=== PATIENT | female | born 1990 | race Caucasian/White ===

== ENCOUNTER → 2020-01-15 09:18 | Outpatient (CLI) | payer BC, SELFPAY ==
--- NOTE | ~2020-01-15 | US_ITS ---
EXAMINATION: US thyroid DATE: 01/15/2020 09:41 INDICATION: Nontoxic goiter. TECHNIQUE: Multiple ultrasound images of the thyroid were obtained. COMPARISON: 06/30/2016 FINDINGS: The right thyroid lobe measures 6.5 x 2.0 x 2.1 cm. The left thyroid lobe measures 5.9 x 1.6 x 1.6 c m. The thyroid isthmus measures 7 mm in thickness. No discrete nodules identified. There is normal ec hotexture, echogenicity and vascular flow throughout the thyroid gland. IMPRESSION: 1. No significant interval change in an enlarged thyroid without discrete mass. Recommend clinical fo llowup with repeat imaging if there are changes on physical exam. Reviewed, dictated and finalized at location B. IMPRESSION: 1. No significant interval change in an enlarged thyroid without discrete mass. Recommend clinical followup with repeat imaging if there are changes on physic al exam.
== END ==
PROVIDERS: Visit Provider Obstetrics & Gynecology
DX: E04.9 Nontoxic goiter, unspecified (principal)
CPT/HCPCS: 76536

== ENCOUNTER 2020-01-15 09:50 | Outpatient (CLI) | payer BC, SELFPAY ==
[2020-01-15 11:17] LABS: Free T4 Free Thyroxine 0.89 ng/mL (0.78-2.19)
== END 2020-01-15 09:51 | disposition home or self-care (01) ==
LOC: ANHLAB 09:52
PROVIDERS: Visit Provider Obstetrics & Gynecology
DX: E04.9 Nontoxic goiter, unspecified (principal)
CPT/HCPCS: 36415; 84439; 84443

== ENCOUNTER 2020-03-20 14:59 | Outpatient (RCR) | payer BC, SELFPAY ==
[2020-03-23 06:35] LABS: Progesterone 14.2 ng/mL (***)
== END 2020-06-16 23:59 | disposition home or self-care (01) ==
LOC: ANHLAB 14:59
PROVIDERS: Visit Provider Obstetrics & Gynecology
DX: O09.299 Supervision of pregnancy with other poor reproductive or obstetric history, unspecified trimester (principal); Z3A.00 Weeks of gestation of pregnancy not specified
CPT/HCPCS: 36415; 84144; 84702

== ENCOUNTER 2020-04-16 09:32 | Outpatient (CLI) | payer BC, SELFPAY ==
[2020-04-16 09:58] LABS: Basophils Percent Auto 0.3 % (0.2-1.2); Eosinophils Absolute Auto 0.1 K/mm3 (0-0.3); Hematocrit 37.9 % (37.0-47.0); Hemoglobin 13.2 g/dL (12.0-15.0); Immature Granulocyte Absolute 0.02 K/mm3 (0.00-0.031); Immature Granulocyte Percent A 0.2 % (0-0.5); Lymphocytes Absolute Auto 2.27 K/mm3 (0.9-3.2); Lymphocytes Percent Auto 22.8 % (18.3-44.2); Mean Corpuscular HGB Conc 34.8 g/dl (32-36); Mean Corpuscular Hemoglobin 30.6 pg (26-34); Mean Corpuscular Volume 87.7 fl (80-100); Mean Platelet Volume 9.5 fl (7.4-10.4); Monocytes Absolute Auto 0.7 K/mm3 (0.1-0.6); Neutrophils Absolute Auto 6.9 K/mm3 (1.3-6.7); Neutrophils Percent Auto 68.7 % (45.5-73.1); Platelet Count Result 323 k/mm3 (150-375); Red Blood Count 4.32 M/mm3 (4.2-5.4); Red Cell Distribution Width 12.2 % (11.5-14.5)
[2020-04-16 10:07] LABS: Add Urine Microscopic? YES; Appearance Urine Clear (Clear); Bacteria Urine Trace /hpf; Bilirubin Urine Negative (Negative); Blood Urine Negative (Negative); Color Urine Yellow (Yellow); Glucose Urine UA Negative (Negative); Ketones Urine Negative (Negative); Leukocyte Esterase Ur Trace LEU/UL (NEGATIVE); Mucus Urine Rare /lpf; Nitrate Urine Negative (Negative); Protein Urine Negative (Negative); Specific Grav Ur 1.015 (1.001-1.035); Squamous Epithelial Cell Urine Many /hpf (Few); Urobilinogen Urine Negative mg/dL (<2.0)
[2020-04-16 10:40] LABS: Thyroid Stimulating Hormone 0.104 uIU/mL (0.465-4.680)
[2020-04-16 10:50] LABS: HIV 1/2 Ab P24 Ag Result Negative (Negative)
[2020-04-16 10:51] LABS: Vitamin D 25 Hydroxy 34.1 ng/mL
[2020-04-16 11:15] LABS: Hepatitis B Surface Antigen Negative (Negative); Rubella IgG Antibody 8.5 IU/ML
[2020-04-16 11:21] LABS: Hepatitis C Virus Antibody Negative (Negative)
[2020-04-17 07:46] LABS: Rapid Plasma Reagin Non-Reactive (NonReactive)
[2020-04-23 22:19] LABS: Hematocrit 39.1 % (35.0-45.0); Hemoglobin 12.9 g/dL (11.7-15.5); MCH 30.7 pg (27.0-33.0); MCV 92.7 FL (80.0-100.0); RDW 13.5 % (11.0-15.0); Red Blood Cell Count 4.22 Mill/uL (3.80-5.10)
== END 2020-04-16 09:33 | disposition home or self-care (01) ==
LOC: ANHLAB 09:34
PROVIDERS: Visit Provider Obstetrics & Gynecology
DX: Z34.90 Encounter for supervision of normal pregnancy, unspecified, unspecified trimester (principal); Z3A.00 Weeks of gestation of pregnancy not specified
CPT/HCPCS: 36415; 81001; 82306; 83021; 84443; 85025; 86592; 86703; 86762; 86787; 86803; 86850; 86900; 86901; 87077; 87086; 87088; 87186; 87340; G0432

== ENCOUNTER 2020-05-13 12:38 | Outpatient (CLI) | payer BC, SELFPAY | END 2020-05-13 12:39 | disposition home or self-care (01) | LOC: ANHLAB 12:40 | PROVIDERS: Visit Provider Obstetrics & Gynecology | DX: O09.299 Supervision of pregnancy with other poor reproductive or obstetric history, unspecified trimester (principal); Z3A.00 Weeks of gestation of pregnancy not specified | CPT/HCPCS: 36415; 84436; 84702; 87086 ==

== ENCOUNTER 2020-05-19 09:25 | Outpatient (CLI) | payer BC, SELFPAY ==
[2020-05-19 10:30] LABS: Thyroid Stimulating Hormone 0.482 uIU/mL (0.465-4.680); Total Triiodothyronine (T3) 1.61 NG/ML (0.97-1.69)
[2020-05-21 13:49] LABS: Thyroid Stimulating Immunoglob <89 % baseline (<140)
[2020-05-22 04:33] LABS: Thyroid Peroxidase Antibodies <1 IU/mL (<9)
== END 2020-05-19 09:26 | disposition home or self-care (01) ==
LOC: ANHLAB 09:26
PROVIDERS: Visit Provider Obstetrics & Gynecology
DX: Z34.90 Encounter for supervision of normal pregnancy, unspecified, unspecified trimester (principal); Z3A.00 Weeks of gestation of pregnancy not specified
CPT/HCPCS: 36415; 84436; 84443; 84445; 84480; 86376

== ENCOUNTER 2020-05-21 07:29 | Outpatient (CLI) | payer BC, SELFPAY ==
[2020-05-21 09:14] LABS: Alanine Aminotransferase 11 U/L (4-35); Albumin Level 3.6 g/dL (3.5-5.1); Alkaline Phosphatase 59 U/L (38-126); Anion Gap 6 mmol/L (8-16); Aspartate Amino Transferase 21 U/L (14-36); Bilirubin,Total 0.3 mg/dL (0.2-1.3); Blood Urea Nitrogen 7 mg/dL (7-17); Calcium 9.1 mg/dL (8.4-10.2); Carbon Dioxide 26 mmol/L (22-30); Chloride 103 mmol/L (98-107); Estimated Glomerular Filt Rate > 60; Glucose 86 mg/dL (65-105); Potassium 4.2 mmol/L (3.4-5.0); Sodium 135 mmol/L (137-145)
[2020-05-21 09:44] LABS: Thyroid Stimulating Hormone 0.604 uIU/mL (0.465-4.680)
[2020-05-21 09:53] LABS: Erythrocyte Sedimentation Rate 28 mm/hr (0-20)
[2020-05-21 10:43] LABS: Free T4 Free Thyroxine 1.13 ng/mL (0.78-2.19)
[2020-05-24 05:29] LABS: Thyroid Peroxidase Antibodies <1 IU/mL (<9)
[2020-05-26 05:24] LABS: Triiodothyronine T3 Free 3.1 pg/mL (2.3-4.2)
[2020-05-26 14:50] LABS: Thyroid Stimulating Immunoglob <89 % baseline (<140)
== END 2020-05-21 07:30 | disposition home or self-care (01) ==
PROVIDERS: Visit Provider Internal Medicine Endocrinology, Diabetes & Metabolism
DX: R94.6 Abnormal results of thyroid function studies (principal)
CPT/HCPCS: 36415; 80053; 84439; 84443; 84445; 84481; 85652; 86376

== ENCOUNTER 2020-05-30 11:12 | Outpatient (CLI) | payer BC, SELFPAY ==
[2020-05-30 12:33] LABS: Thyroid Stimulating Hormone 0.579 uIU/mL (0.465-4.680)
[2020-05-30 12:35] LABS: Free T4 Free Thyroxine 1.13 ng/mL (0.78-2.19)
[2020-06-03 12:54] LABS: Triiodothyronine T3 Free 3.3 pg/mL (2.3-4.2)
== END 2020-05-30 11:13 | disposition home or self-care (01) ==
PROVIDERS: Visit Provider Internal Medicine Endocrinology, Diabetes & Metabolism
DX: R94.6 Abnormal results of thyroid function studies (principal)
CPT/HCPCS: 36415; 84439; 84443; 84481

== ENCOUNTER 2020-06-23 11:03 | Outpatient (CLI) | payer BC, SELFPAY ==
[2020-06-23 11:51] LABS: Alanine Aminotransferase 11 U/L (4-35); Albumin Level 4.2 g/dL (3.5-5.1); Alkaline Phosphatase 74 U/L (38-126); Anion Gap 7 mmol/L (8-16); Aspartate Amino Transferase 23 U/L (14-36); Bilirubin,Total 0.4 mg/dL (0.2-1.3); Blood Urea Nitrogen 5 mg/dL (7-17); Calcium 9.6 mg/dL (8.4-10.2); Carbon Dioxide 25 mmol/L (22-30); Chloride 105 mmol/L (98-107); Estimated Glomerular Filt Rate > 60; Glucose 86 mg/dL (65-105); Potassium 4.1 mmol/L (3.4-5.0); Sodium 137 mmol/L (137-145)
[2020-06-23 12:41] LABS: Free T4 Free Thyroxine 0.98 ng/mL (0.78-2.19)
[2020-06-26 05:24] LABS: Thyroid Peroxidase Antibodies <1 IU/mL (<9)
[2020-06-27 06:55] LABS: Triiodothyronine T3 Free 2.8 pg/mL (2.3-4.2)
[2020-06-30 15:03] LABS: Thyroid Stimulating Immunoglob <89 % baseline (<140)
== END 2020-06-23 11:04 | disposition home or self-care (01) ==
LOC: ANHLAB 11:06
PROVIDERS: Visit Provider Internal Medicine Endocrinology, Diabetes & Metabolism
DX: Z34.90 Encounter for supervision of normal pregnancy, unspecified, unspecified trimester (principal); R94.6 Abnormal results of thyroid function studies; Z3A.00 Weeks of gestation of pregnancy not specified
CPT/HCPCS: 36415; 80053; 84439; 84443; 84445; 84481; 86376

== ENCOUNTER 2020-08-08 09:16 | Outpatient (CLI) | payer BC, SELFPAY ==
[2020-08-08 09:54] LABS: Glucose Fasting Gestational 86 mg/dL (>/=95)
[2020-08-08 11:26] LABS: Glucose 1 Hour Gest 132 mg/dL (>/=180)
[2020-08-08 12:22] LABS: Glucose 2 Hour Gest 135 mg/dL (>/= 155)
[2020-08-08 13:30] LABS: Glucose 3 Hour Gest 105 mg/dL (>/=140)
== END 2020-08-08 09:17 | disposition home or self-care (01) ==
PROVIDERS: Visit Provider Obstetrics & Gynecology
DX: O24.419 Gestational diabetes mellitus in pregnancy, unspecified control (principal); Z3A.00 Weeks of gestation of pregnancy not specified
CPT/HCPCS: 36415; 82951; 82952

== ENCOUNTER 2020-09-18 09:47 | Outpatient (CLI) | payer BC, SELFPAY ==
[2020-09-18 10:17] LABS: Basophils Percent Auto 0.3 % (0.2-1.2); Eosinophils Absolute Auto 0.1 K/mm3 (0-0.3); Eosinophils Percent Auto 0.7 % (0-4.4); Hematocrit 36.2 % (37.0-47.0); Immature Granulocyte Absolute 0.07 K/mm3 (0.00-0.031); Immature Granulocyte Percent A 0.6 % (0-0.5); Lymphocytes Percent Auto 19.4 % (18.3-44.2); Mean Corpuscular HGB Conc 33.1 g/dl (32-36); Mean Corpuscular Volume 93.5 fl (80-100); Mean Platelet Volume 9.7 fl (7.4-10.4); Monocytes Absolute Auto 0.6 K/mm3 (0.1-0.6); Monocytes Percent Auto 5.4 % (2.6-8.5); Neutrophils Percent Auto 73.6 % (45.5-73.1); Platelet Count Result 243 k/mm3 (150-375); Red Blood Count 3.87 M/mm3 (4.2-5.4); Red Cell Distribution Width 12.6 % (11.5-14.5); White Blood Count 10.8 K/mm3 (4.5-10.0)
[2020-09-18 11:08] LABS: HIV 1/2 Ab P24 Ag Result Negative (Negative)
[2020-09-19 07:01] LABS: Rapid Plasma Reagin Non-Reactive (NonReactive)
== END 2020-09-18 09:48 | disposition home or self-care (01) ==
LOC: ANHLAB 09:49
PROVIDERS: Visit Provider Student in an Organized Health Care Education/Training Program
DX: Z34.90 Encounter for supervision of normal pregnancy, unspecified, unspecified trimester (principal); Z3A.00 Weeks of gestation of pregnancy not specified
CPT/HCPCS: 36415; 85025; 86592; 86703; G0432

== ENCOUNTER 2020-10-02 13:42 | Outpatient (CLI) | payer BC, SELFPAY ==
[2020-10-02 14:31] VITALS: BP 125/76; PULSE 103
[2020-10-02 14:33] LABS: Add Urine Microscopic? YES; Amorphous Sediment Urine Few; Appearance Urine Cloudy (Clear); Bacteria Urine Trace /hpf; Bilirubin Urine Negative (Negative); Blood Urine Negative (Negative); Color Urine Yellow (Yellow); Glucose Urine UA Negative (Negative); Ketones Urine 2+ mg/dL (Negative); Leukocyte Esterase Ur Trace LEU/UL (NEGATIVE); Mucus Urine Rare /lpf; Nitrate Urine Negative (Negative); Protein Urine 1+ mg/dL (Negative); RBC Urine 0-2 /hpf (0-2); Specific Grav Ur 1.029 (1.001-1.035); Squamous Epithelial Cell Urine Many /hpf (Few); Urobilinogen Urine Negative mg/dL (<2.0)
[2020-10-02 14:34] LABS: Basophils Percent Auto 0.2 % (0.2-1.2); Eosinophils Absolute Auto 0.1 K/mm3 (0-0.3); Eosinophils Percent Auto 0.7 % (0-4.4); Hematocrit 36.9 % (37.0-47.0); Hemoglobin 12.3 g/dL (12.0-15.0); Immature Granulocyte Absolute 0.11 K/mm3 (0.00-0.031); Immature Granulocyte Percent A 0.8 % (0-0.5); Lymphocytes Absolute Auto 2.25 K/mm3 (0.9-3.2); Lymphocytes Percent Auto 16.5 % (18.3-44.2); Mean Corpuscular HGB Conc 33.3 g/dl (32-36); Mean Corpuscular Hemoglobin 30.4 pg (26-34); Mean Corpuscular Volume 91.1 fl (80-100); Mean Platelet Volume 9.4 fl (7.4-10.4); Monocytes Absolute Auto 0.7 K/mm3 (0.1-0.6); Monocytes Percent Auto 4.9 % (2.6-8.5); Neutrophils Absolute Auto 10.5 K/mm3 (1.3-6.7); Neutrophils Percent Auto 76.9 % (45.5-73.1); Platelet Count Result 248 k/mm3 (150-375); Red Blood Count 4.05 M/mm3 (4.2-5.4); Red Cell Distribution Width 12.7 % (11.5-14.5); White Blood Count 13.7 K/mm3 (4.5-10.0)
[2020-10-02 14:40] LABS: Creatinine Urine 195.3 mg/dL; Total Protein Urine Random 11 mg/dL; Ur Ttl Prot Creatinine Ratio 0.06 mg/mg (0-0.20)
[2020-10-02 14:40] LABS: Alanine Aminotransferase 12 U/L (4-35); Albumin Level 3.9 g/dL (3.5-5.1); Alkaline Phosphatase 109 U/L (38-126); Anion Gap 8 mmol/L (8-16); Aspartate Amino Transferase 25 U/L (14-36); Bilirubin,Total 0.4 mg/dL (0.2-1.3); Blood Urea Nitrogen 9 mg/dL (7-17); Calcium 9.4 mg/dL (8.4-10.2); Carbon Dioxide 20 mmol/L (22-30); Chloride 106 mmol/L (98-107); Estimated Glomerular Filt Rate > 60; Glucose 81 mg/dL (65-105); Sodium 134 mmol/L (137-145); Uric Acid 4.7 mg/dL (2.5-7.5)
[2020-10-02 14:46] VITALS: BP 129/79; PULSE 93
[2020-10-02 15:01] VITALS: BP 129/69; PULSE 101
[2020-10-02 15:16] VITALS: BP 120/69; PULSE 96
--- NOTE | 2020-10-02 15:20 | PC.NURSE ---
Dr Bull notified of BP's and lab results. Ok to dc home with 24 urine.
[2020-10-02 15:27] VITALS: BP 125/76; PULSE 99
== END 2020-10-02 15:30 | disposition home or self-care (01) ==
LOC: ANHOBOP 13:47 → ANHLDR 13:48
PROVIDERS: Visit Provider Obstetrics & Gynecology
DX: O13.9 Gestational [pregnancy-induced] hypertension without significant proteinuria, unspecified trimester (principal); Z3A.00 Weeks of gestation of pregnancy not specified
CPT/HCPCS: 36415; 59025; 80053; 81001; 82570; 84156; 84550; 85025; 87086; 87088; 99199

== ENCOUNTER 2020-10-03 15:18 | Outpatient (CLI) | payer BC, SELFPAY ==
[2020-10-03 17:01] LABS: Collection Time Urine 24 HOURS; Total Volume 24 Hour Urine 1100 ml
[2020-10-03 17:12] LABS: Total Volume 24 Hour Urine 1100 ml
[2020-10-03 17:15] LABS: Patient Weight 228 Lbs
[2020-10-03 17:45] LABS: Total Protein Urine 24 Hr 132 mg/24hr (28-141); Total Protein Urine Random 12 mg/dL
[2020-10-03 17:48] LABS: Creatinine Clearance Urine 160.4 ml/min (75-125); Creatinine Urine 155.2 mg/dL
== END 2020-10-03 15:19 | disposition home or self-care (01) ==
LOC: ANHOBOP 15:29
PROVIDERS: Visit Provider Obstetrics & Gynecology
DX: O13.9 Gestational [pregnancy-induced] hypertension without significant proteinuria, unspecified trimester (principal); Z3A.00 Weeks of gestation of pregnancy not specified
CPT/HCPCS: 81050; 82575; 84156

== ENCOUNTER 2020-10-09 14:12 | Outpatient (RCR) | payer BC, SELFPAY ==
[2020-08-05 08:31] LABS: Basophils Percent Auto 0.2 % (0.2-1.2); Eosinophils Absolute Auto 0.1 K/mm3 (0-0.3); Eosinophils Percent Auto 0.8 % (0-4.4); Hematocrit 35.8 % (37.0-47.0); Hemoglobin 11.9 g/dL (12.0-15.0); Immature Granulocyte Absolute 0.09 K/mm3 (0.00-0.031); Immature Granulocyte Percent A 0.8 % (0-0.5); Lymphocytes Absolute Auto 1.93 K/mm3 (0.9-3.2); Lymphocytes Percent Auto 16.4 % (18.3-44.2); Mean Corpuscular HGB Conc 33.2 g/dl (32-36); Mean Corpuscular Hemoglobin 31.3 pg (26-34); Mean Corpuscular Volume 94.2 fl (80-100); Mean Platelet Volume 9.4 fl (7.4-10.4); Monocytes Absolute Auto 0.5 K/mm3 (0.1-0.6); Monocytes Percent Auto 3.8 % (2.6-8.5); Neutrophils Absolute Auto 9.2 K/mm3 (1.3-6.7); Platelet Count Result 272 k/mm3 (150-375); Red Cell Distribution Width 13.1 % (11.5-14.5); White Blood Count 11.8 K/mm3 (4.5-10.0)
[2020-08-05 08:45] LABS: Glucose 1 Hour PP 50gm Dose 139 mg/dL; Potassium 3.7 mmol/L (3.4-5.0)
[2020-08-05 08:46] LABS: Alanine Aminotransferase 10 U/L (4-35); Albumin Level 3.7 g/dL (3.5-5.1); Alkaline Phosphatase 71 U/L (38-126); Anion Gap 7 mmol/L (8-16); Aspartate Amino Transferase 20 U/L (14-36); Bilirubin,Total 0.2 mg/dL (0.2-1.3); Blood Urea Nitrogen 6 mg/dL (7-17); Calcium 8.6 mg/dL (8.4-10.2); Carbon Dioxide 24 mmol/L (22-30); Chloride 105 mmol/L (98-107); Estimated Glomerular Filt Rate > 60; Glucose 140 mg/dL (65-105); Sodium 136 mmol/L (137-145)
[2020-08-05 09:13] LABS: Thyroid Stimulating Hormone 0.756 uIU/mL (0.465-4.680)
[2020-08-05 09:40] LABS: Free T4 Free Thyroxine 0.98 ng/mL (0.78-2.19)
[2020-08-05] MEDS: RHO(D) IMMUNE GLOBULIN 300 MCG/2 ML SYRINGE IM (16:26)
--- NOTE | ~2020-10-09 | US_ITS ---
US OB limited 10/09/2020 16:01 Indication: Evaluate amniotic fluid index. Procedure: High-resolution Limited obstetrical ultrasound Comparison: No prior studies for comparison. Findings: There is a single living intrauterine in vertex presentation. heart rate is 150 BPM. Placenta is fundal without previa. Amniotic fluid index is normal measuring 13.9 cm (normal range for gestational age is 7.9-24.9 cm). Impression: 1: Single living intrauterine in vertex presentation. 2: Normal ANGELES measures 13.9 cm. Reviewed, dictated and finalized at location A. Impression: 1: Single living intrauterine in vertex presentation. 2: Normal ANGELES measures 13.9 cm.
[2020-10-09 15:22] LABS: Basophils Percent Auto 0.2 % (0.2-1.2); Eosinophils Absolute Auto 0.1 K/mm3 (0-0.3); Eosinophils Percent Auto 0.7 % (0-4.4); Hemoglobin 11.6 g/dL (12.0-15.0); Immature Granulocyte Absolute 0.06 K/mm3 (0.00-0.031); Immature Granulocyte Percent A 0.6 % (0-0.5); Mean Corpuscular HGB Conc 33.1 g/dl (32-36); Mean Corpuscular Hemoglobin 30.2 pg (26-34); Mean Corpuscular Volume 91.1 fl (80-100); Monocytes Absolute Auto 0.5 K/mm3 (0.1-0.6); Monocytes Percent Auto 5.5 % (2.6-8.5); Platelet Count Result 246 k/mm3 (150-375); Red Blood Count 3.84 M/mm3 (4.2-5.4); Red Cell Distribution Width 12.7 % (11.5-14.5); White Blood Count 9.5 K/mm3 (4.5-10.0)
[2020-10-09 15:26] LABS: Add Urine Microscopic? YES; Appearance Urine Cloudy (Clear); Bacteria Urine Trace /hpf; Bilirubin Urine Negative (Negative); Blood Urine Negative (Negative); Color Urine Yellow (Yellow); Glucose Urine UA Negative (Negative); Ketones Urine Negative (Negative); Leukocyte Esterase Ur Negative LEU/UL (NEGATIVE); Mucus Urine Rare /lpf; Nitrate Urine Negative (Negative); Protein Urine Negative (Negative); RBC Urine 0-2 /hpf (0-2); Specific Grav Ur 1.011 (1.001-1.035); Squamous Epithelial Cell Urine Rare /hpf (Few); Urobilinogen Urine Negative mg/dL (<2.0); WBC Urine 0-3 /hpf (0-3)
[2020-10-09 15:27] LABS: Total Protein Urine Random 12 mg/dL; Ur Ttl Prot Creatinine Ratio 0.19 mg/mg (0-0.20)
[2020-10-09 15:30] LABS: Alanine Aminotransferase 11 U/L (4-35); Albumin Level 3.7 g/dL (3.5-5.1); Alkaline Phosphatase 95 U/L (38-126); Anion Gap 8 mmol/L (8-16); Aspartate Amino Transferase 28 U/L (14-36); Bilirubin,Total 0.3 mg/dL (0.2-1.3); Blood Urea Nitrogen 7 mg/dL (7-17); Calcium 9.6 mg/dL (8.4-10.2); Carbon Dioxide 23 mmol/L (22-30); Chloride 106 mmol/L (98-107); Estimated Glomerular Filt Rate > 60; Glucose 109 mg/dL (65-105); Potassium 3.9 mmol/L (3.4-5.0); Sodium 137 mmol/L (137-145); Uric Acid 5.1 mg/dL (2.5-7.5)
--- NOTE | 2020-10-09 16:27 | PC.NURSE ---
Notified Dr Bull of ANGELES and orders recieved to discharge home.
== END 2020-10-14 09:41 | disposition home or self-care (01) ==
LOC: ANHLAB 14:12
PROVIDERS: Referring Provider Internal Medicine Endocrinology, Diabetes & Metabolism; Visit Provider Obstetrics & Gynecology
DX: Z29.13 Encounter for prophylactic Rho(D) immune globulin (principal); O36.0120 Maternal care for anti-D [Rh] antibodies, second trimester, not applicable or unspecified; Z3A.26 26 weeks gestation of pregnancy
CPT/HCPCS: 36415; 59025; 76815; 80053; 81001; 82570; 82947; 84156; 84439; 84443; 84550; 85025; 85461; 90384; 96372; J2790

== ENCOUNTER 2020-10-17 09:26 | Outpatient (RCR) | payer BC, SELFPAY ==
[2020-10-14 10:13] VITALS: BP 126/79; PULSE 103
--- NOTE | ~2020-10-17 | US_ITS ---
EXAMINATION: US OB limited w BPP DATE: 10/17/2020 10:36 INDICATION: Gestational hypertension. Third trimester. TECHNIQUE: Real-time pelvic ultrasound was performed. COMPARISON: Ultrasound 10/14/2020 FINDINGS: There is a single living fetus in vertex presentation. The placenta is fundal. heart rate is 1 47 beats per minute (bpm). The amniotic fluid index is 11.9 cm, which is normal. Biophysical profile performed by the technologist: breathing (30 sec sustained breathing in 30 minutes): 2 out of 2 movement (3 gross body movements in 30 minutes): 2 out of 2 tone (one episode of uldbslu-cxxxozsgo-abwccgo limb movement): 2 out of 2 Amniotic fluid pocket (2 cm): 2 out of 2 Total score: 8 out of 8 IMPRESSION: 1. Single living fetus in vertex presentation. 2. Biophysical profile 8 out of 8. Reviewed, dictated and finalized at location A.
--- NOTE | ~2020-10-17 | US_ITS ---
EXAMINATION: US OB limited EXAM DATE: 10/14/2020 10:06 INDICATION: Gestational hypertension. Check ANGELES. 3rd trimester. TECHNIQUE: Pelvic obstetrical transabdominal sonogram was performed by a technologist. There are mu ltiple grayscale and Doppler images available for interpretation. Comparison is made to prior examina tion from 10/09/2020. FINDINGS: There is a single fetus identified in vertex presentation with a heart rate of 147 beats pe r minute. The placenta is located in the fundal position. There is no sonographic evidence of retrop lacental hemorrhage identified. The amniotic fluid index is 15.8 centimeters, which is normal (was 13 .9 cm on 10/09). IMPRESSION: 1. Single fetus in vertex presentation with heart rate 147 beats per minute. 2. Normal ANGELES 15.8 cm. Reviewed, dictated and finalized at location B.
== END 2020-10-22 07:47 | disposition home or self-care (01) ==
LOC: ANHOBOP 09:26
PROVIDERS: Visit Provider Obstetrics & Gynecology
DX: O16.3 Unspecified maternal hypertension, third trimester (principal); Z3A.36 36 weeks gestation of pregnancy
CPT/HCPCS: 59025; 76815; 76819

== ENCOUNTER 2020-10-20 00:01 | Inpatient (IN) | payer BC, SELFPAY ==
[2020-10-20] VITALS (71 sets, daily range): BP systolic 102–135; BP diastolic 54–85; PULSE 72–107; RESP 16; TEMP 36.1–36.7; O2SAT 95–100; BMI 34.5
--- NOTE | 2020-10-20 00:01 | LDADM ---
This patient, Jade Domínguez, was admitted to Labor/Delivery/Recovery 105 on 10/20/20 at 00:01. Plans for labor, pain management and were discussed with patient. Patient/family oriented to hospital policies and general routines including ID bracelet, bed and alarms, visiting hours, pain management, procedures, bathroom and other care routines, personal items, smoking policy, room service/diet and guest tray routines, infant security routines, and visiting hours. Patient/Family are encouraged to report perceived risks to care and to ask questions if they do not understand what they are told or what they should do. See OBIX for further documentation.
[2020-10-20] MEDS: LACTATED RINGERS 1,000 ML 125 ML IV CONT ×2 (00:37→06:29)
[2020-10-20] MEDS: CLINDAMYCIN 900 MG/D5W 50 ML 900 MG/50 ML PIGGYBACK 50 MG IVPB ×2 (00:38→08:19)
[2020-10-20 00:42] LABS: Basophils Percent Auto 0.2 % (0.2-1.2); Eosinophils Absolute Auto 0.2 K/mm3 (0-0.3); Eosinophils Percent Auto 1.7 % (0-4.4); Hemoglobin 12.3 g/dL (12.0-15.0); Immature Granulocyte Absolute 0.05 K/mm3 (0.00-0.031); Immature Granulocyte Percent A 0.5 % (0-0.5); Lymphocytes Absolute Auto 2.84 K/mm3 (0.9-3.2); Lymphocytes Percent Auto 28.3 % (18.3-44.2); Mean Corpuscular HGB Conc 33.2 g/dl (32-36); Mean Corpuscular Hemoglobin 30.5 pg (26-34); Mean Corpuscular Volume 91.8 fl (80-100); Mean Platelet Volume 9.9 fl (7.4-10.4); Monocytes Absolute Auto 0.7 K/mm3 (0.1-0.6); Monocytes Percent Auto 7.3 % (2.6-8.5); Neutrophils Absolute Auto 6.2 K/mm3 (1.3-6.7); Platelet Count Result 247 k/mm3 (150-375); Red Blood Count 4.03 M/mm3 (4.2-5.4); Red Cell Distribution Width 12.6 % (11.5-14.5)
[2020-10-20 01:07] LABS: Uric Acid 5.1 mg/dL (2.5-7.5)
[2020-10-20 01:18] LABS: Alanine Aminotransferase 10 U/L (4-35); Albumin Level 3.7 g/dL (3.5-5.1); Alkaline Phosphatase 117 U/L (38-126); Anion Gap 11 mmol/L (8-16); Aspartate Amino Transferase 24 U/L (14-36); Bilirubin,Total 0.4 mg/dL (0.2-1.3); Blood Urea Nitrogen 10 mg/dL (7-17); Calcium 9.1 mg/dL (8.4-10.2); Carbon Dioxide 19 mmol/L (22-30); Chloride 107 mmol/L (98-107); Estimated CRCL calculation 144 ml/min; Estimated Glomerular Filt Rate > 60; Glucose 90 mg/dL (65-105); Potassium 3.9 mmol/L (3.4-5.0); Sodium 137 mmol/L (137-145)
[2020-10-20] MEDS: OXYTOCIN 30 UNITS/NS 500 ML 30 UNITS/500 ML BAG IV CONT (03:42)
[2020-10-20 07:58] LABS: Rapid Plasma Reagin Non-Reactive (NonReactive)
[2020-10-20] MEDS: OXYTOCIN 30 UNITS/NS 500 ML 30 UNITS/500 ML BAG 125 UNITS IV CONT (10:59)
--- NOTE | 2020-10-20 12:04 | PM.OBPRVD ---
OB - Delivery Note Procedure Delivery date: 10/20/20 Procedure: Spontaneous vaginal delivery events: Induced HTN Intrapartal events: None Induction method: per pitocin protocol Delivery augmentation: rupture of membranes Delivery monitor: external FHT Route of delivery: Laceration Description: None Quantitative Blood Loss (ml): 150 Anesthesia type: None Disposition: floor Complications: None Baby Date of : 10/20/20 Time of : 10:25 Weeks of gestation at delivery: 37 Infant gender: Female presentation: vertex position: Right Occiput Anterior Placenta delivery description: Spontaneous cord vessel description: Delayed Cord Clamping score one minute: 8 score five minutes: 9
--- NOTE | 2020-10-20 12:08 | PM.OBPRVD ---
OB - Delivery Note [place] Baby Weeks of gestation at delivery: 37 Placenta delivery description: Spontaneous score one minute: 8 score five minutes: 9
--- NOTE | 2020-10-20 14:30 | PC.NURSE ---
Mother called out for assist with feeding. Mother reports first feeding was eager latching without issue. Reviewed infant feeding cues, frequencies, duration of feedings, feeding elimination flow sheet, and signs of adequate intake. Demonstrated stimulation techniques to wake for feeding. Assisted with infant to breast. Reviewed positioning/alignment in cross cradle, holding breast in ?U? hold and guided asymmetrical latch on. able to latch correctly. Infant nursed eagerly, with steady draws and frequent swallowing noted. Reviewed signs of a correct latch, effective nursing and suck swallow ratio. Infant would slip to shallow latch, mother reports tenderness. Demonstrated how to adjust latch more deeply while feeding. Mother reports she can feel change in latch and has no tenderness. Nipple care reviewed of lanolin after feedings, warm compresses and gel pads as needed. Suggested mother stimulate while feeding to increase stimulate, increase intake and to assist with maintaining deep latch. Instructed mother to call out for RN assistance if she is unable to latch for feeding or she has discomfort with nursing. Instructed feeding should be initiated three hours from start of last feeding or if feeding cues are noted before. Mother voiced understanding of information shared. Discussed and the 37 week , establishing may have its own unique set of circumstances due to their immaturity. infants may be less alert, have less stamina and may have issues with latch, suck and swallow. With the possible inability to have a vigorous suck swallow, infants may not be adequately stimulating mother and/or able to have adequate milk transfer. Pumping may be considered for additional stimulation and to offer EBM as part of supplement as needed if unable to effectively feed.
--- NOTE | 2020-10-20 17:11 | PC.NURSE ---
1302 Pt admitted to room 288 per wheelchair from labor and delivery after spontaneous vaginal delivery of viable female infant at [address] Bull. Mother is a and is choosing to breast feed infant. /FOB present. Couple oriented to room, staffing and procedures; admission folder reviewed including mother baby guide. Pt's VSS and assessment WNL.
--- NOTE | 2020-10-20 20:01 | PC.NURSE ---
1530 second bag of Pitocin infused, 500cc.
[2020-10-21] VITALS: BP 118/75; PULSE 86; RESP 17; TEMP 36.8
[2020-10-21 05:40] VITALS: BP 120/72; PULSE 82; RESP 16; TEMP 36.8
[2020-10-21 06:23] LABS: Hematocrit 33.3 % (37.0-47.0); Hemoglobin 10.9 g/dL (12.0-15.0)
[2020-10-21 08:10] VITALS: BP 123/68; PULSE 72; RESP 16; TEMP 36.6; O2SAT 98
--- NOTE | 2020-10-21 08:40 | PC.NURSE ---
Addendum entered by Nikky Cortez RN 10/21/20 17:17: 0820 Original Note: Observed mother is able to independently latch with appropriate positioning/alignment. She denies any nipple discomfort, is feeding as required and waking infant to feed if needed. Infant has had at least 7 effective feedings since and is currently meeting outcomes for weight, output, jaundice and feeding frequencies. Stressed to mother to stimulate feeding longer at the breast, with effective nursing. Infant nurses eagerly with good draws and freq swallowing noted with long pausing. Mother states she had an early 37 week previous and required supplementation for a few days. Advised to give after stressing to wake every three hours to feed or before if showing feeding cues. Mother states she feels confident to continue effective at home. Reviewed transition to breast milk, signs of adequate intake, and engorgement/relief. Instructed to call ICP if intake/output less than required. Reviewed regular medications mother is taking. Information provided per Jolie. Reviewed community resources on the [facility] website and in the Mom/Baby guide. Information on outpatient services provided. Mother has no further questions at this time.
[2020-10-21] MEDS: DOCUSATE SODIUM 100 MG CAPSULE PO (10:27)
[2020-10-21] MEDS: MULTIVIT/MIN/PREN/FOL AC/IRON TABLET 1 TAB PO (10:27)
[2020-10-21] MEDS: ACETAMINOPHEN 325 MG TABLET 650 MG PO (10:27)
[2020-10-21 10:30] VITALS: PULSE 72; RESP 16; O2SAT 98
[2020-10-21] MEDS: RHO(D) IMMUNE GLOBULIN 300 MCG/2 ML SYRINGE IM (13:25)
[2020-10-21] MEDS: MEASLES,MUMPS,RUBELLA VACCINE 0.5 ML VIAL SUB-Q (13:26)
[2020-10-22 10:01] VITALS: BP 130/80; PULSE 83; RESP 20; TEMP 36.9; O2SAT 99
--- NOTE | 2020-11-12 01:08 | PM.OBDSVD ---
DS: Admitting Diagnosis Admitting Diagnosis Admitting Diagnosis: 1.Gestational hypertension 2. Induction of labor. DS: Discharge Diagnosis Discharge Diagnosis (1) Delivery normal: Code(s): O80 - Encounter for full-term uncomplicated delivery Status: Acute OB - DS: Summary OB Procedures : PIH Mgmt and Ultrasound OB Procedures Intrapartum: Spontaneous Vag Delivery OB Procedures: : None Peripartum Data Laceration Description: None complications: none Status at Discharge Functional status at discharge: independent ambulation Time Spent with Patient Time attestation: Total time spent providing and/or coordinating discharge services: Exam Narrative: Exam Narrative: Patient admitted for induction of labor on 10/20 for gestational hypertension. She was induced with Pitocin. She had assisted rupture of membranes and progressed into active labor. She hadan uncomplicated vaginal delivery. her blood pressures were normal. She did not have any symptoms of severe headache, scotomata or RUQ pain. She requested discharge home on 10/21/20. She was doing well. Baby was doing well. Discharge precautions discussed. Const: General: no acute distress Orientation/consciousness: oriented to person, oriented to place and oriented to time Eyes: General: appearance normal, both eyes and all related structures Resp: Effort & Inspection: normal respiratory effort GI: Inspection: normal to inspection GI Palp: No abdominal tenderness Neuro: General: oriented to person, oriented to place and oriented to time Extrem: General: normal to inspection Psych: Appearance: grossly normal Discharge Plan Discharge Attending physician on discharge: Lyndon Bull Consulting providers: Jose Antonio Tripp Discharging Clinician: Lyndon Bull Anticipated Discharge Date/Time: 10/21/20 12:59 Patient Disposition: Home, Self-Care Activity: may shower, no straining, as tolerated and pelvic rest Diet: regular Discharge Instructions: Education: Mom and Baby Guide Given to: Mother Follow-Up: Call your delivering provider's office for an appointment to be seen in: 1 Week Mom and baby should come to the [facility] for the follow-up appointment. Appointment Date/Time: October 22, 2020 at 10:00 am What to expect at your follow-up visit: Blood Pressure Check Physical Assessment Call [phone] if you are unable to keep your appointment time. BREAST CARE: * Wear a snug supportive bra. * For engorgement discomfort: Breast Feeding: * Apply warm moist washcloths * Express milk as needed to relieve engorgement * Wear loose clothing * For sore nipples: * Identify correct latch-on * Apply warm moist washcloths before and after nursing * Air dry nipples after nursing * May apply Lansinoh cream to nipples EPISIOTOMY/PERINEAL CARE: * Until bleeding stops, use your marleni bottle after urinating * Change your pad frequently throughout the day * You may take sitz baths several times a day (fill your bathtub with warm water and soak for 20 minutes.) Do NOT bathe in the water * No tub baths until seen by your physician - You may shower ACTIVITY: * Rest as much as possible. * Do not exercise or lift anything heavier than your baby (such as laundry or other children.) * Avoid stairs or driving as much as possible. * Do not put anything into the vagina. No douching, tampons, or sexual activity until seen by physician. NOTIFY PHYSICIAN IF YOU HAVE ANY QUESTIONS OR IF ANY OF THE FOLLOWING SYMPTOMS OCCUR: * If your vaginal area becomes red, swollen, or more painful than what you have experienced in the hospital. * If your vaginal bleeding becomes foul smelling. * If your vaginal bleeding becomes more heavy than a period or if your bleeding changes from pink to bright red. However, you may pass an occasi
--- NOTE | 2020-11-12 01:39 | P.HP_ITS ---
H&P: HPI History of Present Illness Date/Time: 10/20/20 0700 Patient at 37 weeks admitted for medical induction of labor for gestational hypertension. Labs reviewed. GBS positive. She denies headache,scotomata or RUQ pain. Chief Complaint: Medical induction of labor Review of Systems Review of Systems: All systems reviewed & are unremarkable except as noted in HPI and below Constitutional: Constitutional: Reports no additional constitutional complaints and Denies headache(s) Eyes: Eyes: Denies spots in vision ENT: Reports system reviewed and no additional complaints, except as documented and Denies headache(s) Cardiovascular: Cardiovascular: Denies chest pain and Denies dyspnea Respiratory: Respiratory: Denies dyspnea Gastrointestinal: Gastrointestinal: Reports no additional gastrointestinal complaints Genitourinary: Genitourinary: Reports amenorrhea Musculoskeletal: Musculoskeletal: Reports no additional musculoskeletal complaints Integumentary/Breasts: Skin/Breast: Denies breast mass and Denies rash Neurologic: Denies headache(s) Psychiatric: Psychiatric: Reports no additional psychiatric complaints [facility] Past Medical History Medical History (Updated 11/12/20 @ 01:13 by Lyndon Bull MD) Thyroid disease Vaginal delivery x 2 Surgical History Surgical History History of adenoidectomy [place] teeth removed Family History Family History Mother Family history of elevated blood lipids Family history of hypercholesterolemia Other Family history of alcoholism Social History Social History Smoking status: Never smoker Alcohol intake: never Substance use: never Gender identity (if verbalized by the patient): Female Spiritual care concerns: No Meds Home Medications and Allergies Home Medications Medication Instructions Recorded Confirmed Type prenat.vits,staci,tvy-ojfh-erira 1 tablet PO DAILY 03/18/20 11/02/20 History Allergies Allergy/AdvReac Type Severity Reaction Status Date / Time Penicillins Allergy Unknown unknown-too Verified 10/28/20 11:20 young Exam Const: General: no acute distress Eyes: General: appearance normal, both eyes and all related structures Resp: Effort & Inspection: normal respiratory effort Cardio: Rate: regular rate GI: Other: Gravid no fundal tenderness no right upper quadrant pain Skin: General skin exam: no rashes or lesions noted Neuro: Cognition (Neuro): normal cognition Extrem: General: normal to inspection Psych: Mental Status: mental status grossly normal Assessment and Plan Assessment and plan (1) Gestational hypertension: Code(s): O13.9 - Gestational [-induced] hypertension without significant proteinuria, unspecified trimester Status: Acute Assessment and Plan: 1. Admit 2. Ampicillin for GBS carrier. 3. Medical induction of labor with Pitocin. 4. Anticipate vaginal delivery.
== END 2020-10-21 15:15 | disposition home or self-care (01) | DRG 807 ==
LOC: ANHLDR 00:14 → ANHOB2 13:08
PROVIDERS: Admitting Provider Obstetrics & Gynecology; Visit Provider Obstetrics & Gynecology
DX: O13.4 Gestational [pregnancy-induced] hypertension without significant proteinuria, complicating childbirth (principal); Z37.0 Single live birth; O99.824 Streptococcus B carrier state complicating childbirth; O62.3 Precipitate labor; Z3A.37 37 weeks gestation of pregnancy
CPT/HCPCS: 36415; 80053; 84550; 85014; 85018; 85025; 85461; 86592; 86850; 86900; 86901; 90384; 90710; A9270; J2590; J2790; J7120

== ENCOUNTER 2020-12-15 12:40 | Outpatient (CLI) | payer BC, SELFPAY ==
[2020-12-15 15:14] LABS: Free T4 Free Thyroxine 0.78 ng/mL (0.78-2.19)
[2020-12-15 15:29] LABS: Alanine Aminotransferase 48 U/L (4-35); Albumin Level 4.2 g/dL (3.5-5.1); Alkaline Phosphatase 69 U/L (38-126); Anion Gap 9 mmol/L (8-16); Aspartate Amino Transferase 41 U/L (14-36); Bilirubin,Total 0.4 mg/dL (0.2-1.3); Blood Urea Nitrogen 9 mg/dL (7-17); Calcium 9.5 mg/dL (8.4-10.2); Carbon Dioxide 24 mmol/L (22-30); Chloride 107 mmol/L (98-107); Estimated Glomerular Filt Rate > 60; Glucose 108 mg/dL (65-110); Potassium 4.3 mmol/L (3.4-5.0); Sodium 140 mmol/L (137-145)
[2020-12-15 16:12] LABS: Thyroid Stimulating Hormone 0.779 uIU/mL (0.465-4.680)
== END 2020-12-15 12:41 | disposition home or self-care (01) ==
PROVIDERS: Visit Provider Internal Medicine Endocrinology, Diabetes & Metabolism
DX: Z34.90 Encounter for supervision of normal pregnancy, unspecified, unspecified trimester (principal); Z3A.00 Weeks of gestation of pregnancy not specified
CPT/HCPCS: 36415; 80053; 84439; 84443

== ENCOUNTER 2021-03-03 07:50 | Outpatient (CLI) | payer BC, SELFPAY ==
[2021-03-03 08:47] LABS: Alanine Aminotransferase 31 U/L (4-35); Albumin Level 4.4 g/dL (3.5-5.1); Alkaline Phosphatase 74 U/L (38-126); Anion Gap 9 mmol/L (8-16); Aspartate Amino Transferase 31 U/L (14-36); Bilirubin,Total 0.3 mg/dL (0.2-1.3); Blood Urea Nitrogen 10 mg/dL (7-17); Calcium 9.8 mg/dL (8.4-10.2); Carbon Dioxide 28 mmol/L (22-30); Chloride 107 mmol/L (98-107); Estimated Glomerular Filt Rate > 60; Glucose 106 mg/dL (65-110); Potassium 4.4 mmol/L (3.4-5.0); Sodium 144 mmol/L (137-145)
[2021-03-03 08:51] LABS: Hemoglobin A1C 5.3 % (<5.7)
[2021-03-03 09:16] LABS: Thyroid Stimulating Hormone 0.806 uIU/mL (0.465-4.680)
[2021-03-03 09:52] LABS: Free T4 Free Thyroxine 1.09 ng/mL (0.78-2.19)
[2021-03-07 02:39] LABS: Insulin Level Total 14.5 uIU/mL (<=19.6)
[2021-03-09 15:05] LABS: Triiodothyronine T3 Free 3.2 pg/mL (2.3-4.2)
[2021-03-11 13:12] LABS: Thyroid Stimulating Immunoglob <89 % baseline (<140)
== END 2021-03-03 07:51 | disposition home or self-care (01) ==
LOC: ANHLAB 07:52
PROVIDERS: PCP Internal Medicine Endocrinology, Diabetes & Metabolism; Visit Provider Internal Medicine Endocrinology, Diabetes & Metabolism
DX: O90.5 Postpartum thyroiditis (principal); R73.01 Impaired fasting glucose
CPT/HCPCS: 36415; 80053; 83036; 83525; 84439; 84443; 84445; 84481

== ENCOUNTER → 2021-03-23 11:02 | Outpatient (CLI) | payer BC, SELFPAY ==
--- NOTE | ~2021-03-23 | US_ITS ---
EXAMINATION: US thyroid EXAM DATE: 03/23/2021 11:21 INDICATION: Nontoxic goiter, unspecified . TECHNIQUE: Multiple grayscale and Doppler images of the thyroid were obtained (by a technologist who performed the scan) and subsequently reviewed. Individual nodules and recommendations may be reporte d in accordance with TI-RADS system as designated by the 2017 ACR White Paper TI-RADS committee. Comp he is made to prior examination from 01/15/2020, 06/30/2016. FINDINGS: The right there are lobe measures 6.5 x 2.1 x 2.1 cm, moderately enlarged, the left measuring 6.0 x 1 .5 x 1.6 cm, also moderately enlarged. There is moderately diffusely heterogeneous thyroid echogenici ty with expected amount of vascularity. No focal nodules are identified within. There is no significa nt interval change. IMPRESSION: Goiter. Recommend clinical follow-up. Reviewed, dictated and finalized at location A. [employer]
== END ==
PROVIDERS: Visit Provider Internal Medicine Endocrinology, Diabetes & Metabolism
DX: E04.9 Nontoxic goiter, unspecified (principal)
CPT/HCPCS: 76536

== ENCOUNTER 2021-09-11 07:55 | Outpatient (CLI) | payer BC, SELFPAY ==
[2021-09-11 08:27] LABS: Hemoglobin A1C 5.4 % (<5.7)
[2021-09-11 08:30] LABS: Cholesterol 229 mg/dL (0-200); HDL Direct 62 mg/dL; Triglycerides 108 mg/dL (<150)
[2021-09-11 08:43] LABS: LDL Cholesterol Direct 124 mg/dL
[2021-09-14 02:17] LABS: Insulin Level Total 16.1 uIU/mL (<=19.6)
== END 2021-09-11 07:56 | disposition home or self-care (01) ==
LOC: ANHLAB 07:59
PROVIDERS: Visit Provider Internal Medicine Endocrinology, Diabetes & Metabolism
DX: R73.01 Impaired fasting glucose (principal)
CPT/HCPCS: 36415; 80061; 83036; 83525

== ENCOUNTER 2022-09-28 07:04 | Outpatient (CLI) | payer BC, SELFPAY ==
[2022-09-28 08:06] LABS: Alanine Aminotransferase 25 U/L (6-35); Albumin Level 4.2 g/dL (3.5-5.1); Alkaline Phosphatase 57 U/L (38-126); Anion Gap 9 mmol/L (8-16); Aspartate Amino Transferase 29 U/L (14-36); Bilirubin,Total 0.7 mg/dL (0.2-1.3); Blood Urea Nitrogen 8 mg/dL (7-17); Calcium 8.3 mg/dL (8.4-10.2); Carbon Dioxide 23 mmol/L (22-30); Chloride 103 mmol/L (98-107); Estimated Glomerular Filt Rate > 60; Glucose 93 mg/dL (65-110); Potassium 3.8 mmol/L (3.4-5.0); Sodium 135 mmol/L (137-145)
[2022-09-28 08:33] LABS: Hemoglobin A1C 5.5 % (<5.7)
[2022-09-28 08:51] LABS: Free T4 Free Thyroxine 1.05 ng/mL (0.78-2.19)
[2022-10-02 05:06] LABS: Triiodothyronine T3 Free 3.5 pg/mL (2.3-4.2)
[2022-10-03 05:17] LABS: Insulin Level Total 14.5 uIU/mL (<=19.6); Thyroid Peroxidase Antibodies <1 IU/mL (<9)
== END 2022-09-28 07:05 | disposition home or self-care (01) ==
LOC: ANHLAB 07:06
PROVIDERS: Visit Provider Internal Medicine Endocrinology, Diabetes & Metabolism
DX: R73.01 Impaired fasting glucose (principal); E06.3 Autoimmune thyroiditis
CPT/HCPCS: 36415; 80053; 83036; 83525; 84439; 84443; 84480; 84481; 86376

== ENCOUNTER 2022-10-30 07:28 | Outpatient (CLI) | payer BC, SELFPAY ==
[2022-10-30 08:33] LABS: Hematocrit 42.6 % (37.0-47.0); Hemoglobin 13.7 g/dL (12.0-15.0); Mean Corpuscular HGB Conc 32.2 g/dl (32-36); Mean Corpuscular Hemoglobin 29.4 pg (26-34); Mean Corpuscular Volume 91.4 fl (80-100); Platelet Count Result 358 k/mm3 (150-375); Red Blood Count 4.66 M/mm3 (4.2-5.4); Red Cell Distribution Width 13.4 % (11.5-14.5); White Blood Count 5.9 K/mm3 (4.5-10.0)
[2022-10-30 08:43] LABS: Alanine Aminotransferase 26 U/L (6-35); Albumin Level 4.5 g/dL (3.5-5.1); Alkaline Phosphatase 56 U/L (38-126); Anion Gap 8 mmol/L (8-16); Aspartate Amino Transferase 33 U/L (14-36); Bilirubin,Total 0.3 mg/dL (0.2-1.3); Blood Urea Nitrogen 9 mg/dL (7-17); Carbon Dioxide 26 mmol/L (22-30); Chloride 106 mmol/L (98-107); Estimated Glomerular Filt Rate > 60; Glucose 102 mg/dL (65-110); Hemoglobin A1C 5.1 % (<5.7); Potassium 3.7 mmol/L (3.4-5.0); Sodium 140 mmol/L (137-145)
[2022-10-30 09:11] LABS: Thyroid Stimulating Hormone 0.891 uIU/mL (0.465-4.680)
[2022-10-30 09:21] LABS: Free T4 Free Thyroxine 1.33 ng/mL (0.78-2.19); Vitamin D 25 Hydroxy 36.5 ng/mL
[2022-11-03 14:51] LABS: FSH 4.4 mIU/mL (***); LH 6.6 mIU/mL (***); Progesterone 8.3 ng/mL (***)
[2022-11-03 14:54] LABS: Insulin Level Total 10.2 uIU/mL (<=19.6)
[2022-11-05 05:46] LABS: Triiodothyronine T3 Free 3.4 pg/mL (2.3-4.2)
[2022-11-12 04:45] LABS: Thyroid Peroxidase Antibodies <1 IU/mL (<9)
== END 2022-10-30 07:29 | disposition home or self-care (01) ==
LOC: ANHLAB 07:31
PROVIDERS: Referring Provider Internal Medicine Endocrinology, Diabetes & Metabolism; Visit Provider Obstetrics & Gynecology
DX: Z31.69 Encounter for other general counseling and advice on procreation (principal); N92.6 Irregular menstruation, unspecified; R73.01 Impaired fasting glucose; R06.3 Periodic breathing
CPT/HCPCS: 36415; 80053; 82306; 83001; 83002; 83036; 83525; 84144; 84439; 84443; 84481; 85027; 86376

== ENCOUNTER → 2022-12-08 09:17 | Outpatient (CLI) | payer BC, SELFPAY ==
--- NOTE | ~2022-12-08 | US_ITS ---
Pelvic ultrasound. Clinical History: First trimester , establish viability and dates Technique: Realtime transabdominal and transvaginal scanning of the pelvis was performed. Color flow Doppler and Doppler spectral analysis were performed. Findings: The uterus is anteverted, and contains an intrauterine gestation. Neola-rump length of 1.6 cm corresponds to an estimated gestational age of 8 weeks 0 days. heart rate is 167 bpm. The right ovary measures 2.5 x 3.6 x 1.6 cm. No significant right ovarian or adnexal mass is seen. The left ovary measures 2.1 x 1.6 x 2.0 cm. No significant left ovarian or adnexal mass is seen. There is no evidence of free fluid in the cul de sac. Impression: Live intrauterine gestation with estimated gestational age of 8 weeks 0 days. heart rate is 167 bpm. Sonographic UBALDO is 07/20/2023. Reviewed, dictated and finalized at [facility]. Impression: Live intrauterine gestation with estimated gestational age of 8 weeks 0 days. F etal heart rate is 167 bpm. Sonographic UBALDO is 07/20/2023.
== END ==
PROVIDERS: PCP Registered Nurse; Visit Provider Registered Nurse
DX: Z36.9 Encounter for antenatal screening, unspecified (principal); Z3A.08 8 weeks gestation of pregnancy
CPT/HCPCS: 76801; 76817

== ENCOUNTER 2022-12-24 13:47 | Outpatient (CLI) | payer BC, SELFPAY ==
[2022-12-24 14:43] LABS: Basophils Percent Auto 0.3 % (0.2-1.2); Eosinophils Absolute Auto 0.2 K/mm3 (0-0.3); Eosinophils Percent Auto 1.4 % (0-4.4); Hematocrit 39.4 % (37.0-47.0); Hemoglobin 13.1 g/dL (12.0-15.0); Immature Granulocyte Absolute 0.03 K/mm3 (0.00-0.031); Immature Granulocyte Percent A 0.3 % (0-0.5); Lymphocytes Absolute Auto 2.76 K/mm3 (0.9-3.2); Lymphocytes Percent Auto 26.3 % (18.3-44.2); Mean Corpuscular HGB Conc 33.2 g/dl (32-36); Mean Corpuscular Hemoglobin 29.9 pg (26-34); Mean Platelet Volume 9.3 fl (7.4-10.4); Monocytes Absolute Auto 0.7 K/mm3 (0.1-0.6); Monocytes Percent Auto 6.4 % (2.6-8.5); Neutrophils Absolute Auto 6.8 K/mm3 (1.3-6.7); Neutrophils Percent Auto 65.3 % (45.5-73.1); Platelet Count Result 337 k/mm3 (150-375); Red Blood Count 4.38 M/mm3 (4.2-5.4); Red Cell Distribution Width 12.7 % (11.5-14.5); White Blood Count 10.5 K/mm3 (4.5-10.0)
[2022-12-24 14:55] LABS: Alanine Aminotransferase 22 U/L (6-35); Albumin Level 4.3 g/dL (3.5-5.1); Alkaline Phosphatase 60 U/L (38-126); Anion Gap 9 mmol/L (8-16); Aspartate Amino Transferase 30 U/L (14-36); Bilirubin,Total 0.5 mg/dL (0.2-1.3); Blood Urea Nitrogen 7 mg/dL (7-17); Calcium 9.7 mg/dL (8.4-10.2); Carbon Dioxide 22 mmol/L (22-30); Chloride 101 mmol/L (98-107); Estimated Glomerular Filt Rate > 60; Glucose 87 mg/dL (65-110); Potassium 3.9 mmol/L (3.4-5.0); Sodium 132 mmol/L (137-145)
[2022-12-24 15:22] LABS: Thyroid Stimulating Hormone 0.637 uIU/mL (0.465-4.680)
[2022-12-24 15:28] LABS: Free T4 Free Thyroxine 1.27 ng/mL (0.78-2.19); Vitamin D 25 Hydroxy 34.6 ng/mL
[2022-12-24 15:32] LABS: HIV 1/2 Ab P24 Ag Result Negative (Negative)
[2022-12-24 23:20] LABS: Hepatitis C Virus Antibody Negative (Negative)
[2022-12-24 23:21] LABS: Hepatitis B Surface Antigen Negative (Negative); Rubella IgG Antibody 31.5 IU/ML
[2022-12-27 07:41] LABS: Rapid Plasma Reagin Non-Reactive (NonReactive)
[2022-12-29 07:15] LABS: Hematocrit 40.7 % (35.0-45.0); Hemoglobin 13.4 g/dL (11.7-15.5); MCH 30.3 pg (27.0-33.0); MCV 92.1 fL (80.0-100.0); RDW 13.1 % (11.0-15.0); Red Blood Cell Count 4.42 Mill/uL (3.80-5.10)
== END 2022-12-24 13:48 | disposition home or self-care (01) ==
PROVIDERS: PCP Registered Nurse; Referring Provider Internal Medicine Endocrinology, Diabetes & Metabolism; Visit Provider Registered Nurse
DX: Z34.90 Encounter for supervision of normal pregnancy, unspecified, unspecified trimester (principal)
CPT/HCPCS: 36415; 80053; 82306; 83021; 84439; 84443; 85025; 86592; 86703; 86762; 86787; 86803; 86900; 86901; 87077; 87086; 87186; 87340; G0432